=== PATIENT | male | born 1980 | race Caucasian/White ===

== ENCOUNTER 2019-01-12 00:51 | Inpatient (IN) | payer SELFPAY ==
[2019-01-12] MEDS ORDERED: cefTRIAXone\\ROCEPHIN 1 GM VIAL ONE (01:26)
[2019-01-12] MEDS ORDERED: cefTRIAXone\\ROCEPHIN 2 GM VIAL ONE (01:29)
[2019-01-12 01:38] LABS: #Lymphocytes 1.4 thou/uL (1.20-3.40); #Monocytes 1.3 thou/uL (0.11-0.59); #Neutrophils 10.1 thou/uL (1.40-6.50); %Basophils 0.1 % (0.0-1.0); %Eosinophils 0.1 % (0.0-10.0); %Lymphocytes 10.9 % (21.0-51.0); %Monocytes 10.4 % (0.0-10.0); %Neutrophils 78.4 % (42.0-75.0); Hemoglobin 13.5 g/dL (14.0-18.0); Mean Corpuscular HGB CONC 33.6 g/dL (32.0-36.0); Mean Corpuscular Hemoglobin 32.4 pg (27.0-31.0); Mean Corpuscular Volume 96.6 fL (78.0-98.0); Mean Platelet Volume 7.4 fL (7.4-10.4); Platelet Count 188 thou/uL (130-400); RBC Distribution Width 11.3 % (11.5-14.5); Red Blood Cell (RBC) Count 4.16 mill/uL (4.70-6.10); White Blood Cell (WBC) Count 12.8 thou/uL (4.8-10.8)
[2019-01-12 01:39] LABS: MONO NEGATIVE CONTROL ZONE White (Negative) (White); MONO POSITIVE CONTROL Pink Line (Positive) (PINK/RED); Mononucleosis NEGATIVE (NEGATIVE)
[2019-01-12 01:56] LABS: ALT (SGPT) 159 U/L (8-55); AST (SGOT) 100 U/L (5-34); Albumin 3.8 g/dL (3.5-5.0); Alkaline Phosphatase 113 U/L (40-150); Anion Gap 13 mmol/L (10-20); BUN (Urea Nitrogen) 17 mg/dL (8.9-20.6); Bilirubin, Total 0.4 mg/dL (0.2-1.2); Calc. Creatinine Clearance 0 mL/min (70-130); Calcium 9.3 mg/dL (7.8-10.44); Carbon Dioxide 26 mmol/L (22-29); Chloride 100 mmol/L (98-107); Estimated GFR-MDRD 83; Globulin 3.5 g/dL (2.4-3.5); Glucose 110 mg/dL (70-105); Potassium 3.5 mmol/L (3.5-5.1); Protein, Total 7.3 g/dL (6.0-8.3); Sodium 135 mmol/L (136-145)
--- NOTE | 2019-01-12 02:55 | PDOC.FPRHP ---
- History of Present Illness Chief Complaint: headache, fever History of Present Illness: 38 yo incarcerated male presents to ED for fever and headaches and neck pain. Started few days ago and associated with photophobia, phonophobia, unrelieved with tylenol and have been worsening. Has a hx of meningitis in 1998. No recent exposure to others with similar sxs. Also endorses night sweats that seems to also be associated with his fever, but no cough. Has a hx of IV drug use, most recently 1.5 mos ago. In ED was febrile and tachycardic, given 1L bolus and tylenol. Patient refused LP due to bad experience and was started on Vanc & rocephin. - Allergies/Adverse Reactions Allergies Allergy/AdvReac Type Severity Reaction Status Date / Time Iodinated Contrast- Oral and Allergy Verified 01/12/19 07:07 IV Dye shellfish derived Allergy Verified 01/12/19 07:07 - History PMHx: Meningitis, bipolar I disore,r anxiety, epilepsy PSHx: Denies FHx: Prostate CA, melanoma Social: former 1/2 pack smoker on & off for 7 years, occasional etOH, hx xanax & meth abuse, IV drug use - Review of Systems General: reports: fever/chills, weight/appetite/sleep changes, night sweats ENT: denies: nasal congestion, rhinorrhea Respiratory: denies: cough, congestion, shortness of breath Cardiovascular: denies: chest pain, palpitation Gastrointestinal: denies: nausea, diarrhea, constipation Genitourinary: denies: dysuria Skin: denies: rashes, lesions Musculoskeletal: reports: pain, stiffness (neck stifness) Neurological: denies: numbness, syncope - Vital signs BP: BP: 133/78, Pulse: 98, Resp: 17 (Non-Labored), O2 sat: 97 on Room Air, Time : 01/12/2019 03:00 - Physical Exam Constitutional: NAD, awake, alert and oriented HEENT: normocephalic and atraumatic, PERRLA, EOMI, no scleral icterus -HEENT: dry mucosal membranes photophobia with light Neck: trachea midline, other (restricted ROM w/ neck, limited by pain negative brudzinski & kernig) Chest: no lesions Heart: RRR, normal S1/S2, no murmurs/rubs/gallops Lungs: CTAB, no respiratory distress, good air movement Abdomen: soft, non-tender Musculoskeletal: normal structure, normal tone Neurological: no focal deficit Skin: no rash/lesions, good turgor, no jaundice Heme/Lymphatic: no petechia FMR H&P: Results - Labs Result Diagrams: 01/12/19 01:26 01/12/19 01:26 Lab results: WBC 12.8 thou/uL (4.8-10.8) H 01/12/19 01:26 Hgb 13.5 g/dL (14.0-18.0) L 01/12/19 01:26 Hct 40.2 % (42.0-52.0) L 01/12/19 01:26 MCV 96.6 fL (78.0-98.0) 01/12/19 01:26 Plt Count 188 thou/uL (130-400) 01/12/19 01:26 Neutrophils % 78.4 % (42.0-75.0) H 01/12/19 01:26 Sodium 135 mmol/L (136-145) L 01/12/19 01:26 Potassium 3.5 mmol/L (3.5-5.1) 01/12/19 01:26 Chloride 100 mmol/L (98-107) 01/12/19 01:26 Carbon Dioxide 26 mmol/L (22-29) 01/12/19 01:26 BUN 17 mg/dL (8.9-20.6) 01/12/19 01:26 Creatinine 1.00 mg/dL (0.7-1.3) 01/12/19 01:26 Glucose 110 mg/dL (70-105) H 01/12/19 01:26 Lactic Acid 2.4 mmol/L (0.5-2.2) H 01/12/19 01:26 Calcium 9.3 mg/dL (7.8-10.44) 01/12/19 01:26 Total Bilirubin 0.4 mg/dL (0.2-1.2) 01/12/19 01:26 AST 100 U/L (5-34) H 01/12/19 01:26 ALT 159 U/L (8-55) H 01/12/19 01:26 Alkaline Phosphatase 113 U/L (40-150) 01/12/19 01:26 Serum Total Protein 7.3 g/dL (6.0-8.3) 01/12/19 01:26 Albumin 3.8 g/dL (3.5-5.0) 01/12/19 01:26 - Radiology Interpretation CT scan - head Status: pending Additional comment: CT brain: pending FMR H&P: A/P - Problem List (1) Sepsis Current Visit: Yes Status: Acute Code(s): A41.9 - SEPSIS, UNSPECIFIED ORGANISM (2) Elevated lactic acid level Current Visit: Yes Status: Acute Code(s): R79.89 - OTHER SPECIFIED ABNORMAL FINDINGS OF BLOOD CHEMISTRY (3) Transaminitis Current Visit: Yes Status: Acute Code(s): R74.0 - NONSPEC ELEV OF LEVELS OF TRANSAMNS & LACTIC ACID DEHYDRGNSE (4) Normocytic anemia Current Visit: Yes Status: Acute Code(s): D64.9 - ANEMIA, UNSPECIFIED (5) History of meningitis Current Visit: Yes Status: Resolved Code(s): Z86.61 - PERSONAL HISTORY OF INFECTIONS OF THE CENTRAL NERVOUS SYSTEM (6) History of intravenous drug abuse Current Visit: Yes Status: Chronic Code(s): Z87.898 - PERSONAL HISTORY OF OTHER SPECIFIED CONDITIONS (7) Bipolar 1 disorder Current Visit: Yes Status: Chronic Code(s): F31.9 - BIPOLAR DISORDER, UNSPECIFIED (8) Anxiety Current Visit: Yes Status: Chronic Code(s): F41.9 - ANXIETY DISORDER, UNSPECIFIED (9) Epilepsy Current Visit: Yes Status: Chronic Code(s): G40.909 - EPILEPSY, UNSP, NOT INTRACTABLE, WITHOUT STATUS EPILEPTICUS - Plan #Sepsis 2/2 suspected meningitis -Headache, photophobia, nuchal rigidity with elevated WBC at 12 and febrile at 100.9 raises concern for meningits in light of prior hx. Patient declined LP in ED, started empirically on Vancomycin & Rocephin in ED, will continue this -Obtain procal, blood cx, urine cx to r/o other sources -CT brain read pending -S/P 1L bolus in ED, will complete to 30cc/kg bolus, start mIVF -Admit medical/inpatient #Elevated lactic acid 2/2 above -Continue fluids #Transaminitis -Hx of IV drug abuse, will obtain RPR, hepatitis panel, HIV, quant gold -Trend with CMP -Can consider RUQ US #History of IV drug/polysubtance abuse -Obtain TTE to assess for endocarditis #Bipolar I -Not on home meds #Anxiety -Not on home meds #Epilepsy -Not on home meds dvt ppx: lovenox code: full dispo: >2 midnight Will discuss w/ Dr. murray FMR H&P: Upper Level - Pertinent history 38 yo M with PMH of bipolar disorder, polysubstance abuse, and previous bacterial meningitis presenting with fever, KAPLAN and neck stiffness. Pt is currently under the care of [facility]. Pt adamantly refused having LP done while in ER due to previous negative experience. Pt also reports being a former IV drug user. - Pertinent findings VSS, tmax 100.9 - Plan Date/Time: 01/12/19 0254 I, Nelson Hernandez MD PGY3, have evaluated this patient and agree with findings/ plan as outlined by academic intern resident. Pertinent changes/additions are listed here. 1. Sepsis 2/2 suspected meningitis -Pt presents with KAPLAN, neck stiffness, fever, leukocytosis and tachycardia. Although pt refuses LP and definitive diagnosis, pt has clinical features of meninigitis with previous history predisposing him as well. Blood cultures obtained and pt started on Vancomycin and Ceftriaxone. -Continue with current abx regimen to cover for N. meningitidis and S. pneumoniae. -Obtain procalcitonin. -Obtain UDS. -With history of IV drug use, obtain TTE to evaluate for possible endocarditis. Vancomycin appropriate initial therapy. -Continue IVF. 2. Elevated lactic acid 2/2 above -IVF and trend. 3. Elevated LFTs -With history of polysubstance abuse and incarceration, obtain quant gold, HIV, RPR, and hepatitis panel. -Continue to trend and consider dedicated RUQ US. -UDS per above. 4. Hx polysubstance abuse -Per above. FULL code PPx: Lovenox for VTE, no GI indicated. disposition: Admit pt under inpatient status for anticipated length of stay greater than two midnights, pending clinical course. Addendum - Attending - Attending Attestation Date/Time: 01/12/19 3981 I personally evaluated the patient and discussed the management with Dr. Vargas/ David. H&P repeated by me. I agree with the History, Examination, Assessment and Plan documented above with any addition or exceptions noted below. 38 y/o incarcerated WM with PMH of bipolar d/o and hx of meningitis in 1998 presents with fever to 103 and neck pain/stiffness. Was seen in ER and discussion had about need for LP to rule out meningitis. Patient refused. Denies vision changes, cough, nasal congestion, abdominal pain, dysuria, rash. Labs and imaging reviewed. No murmurs. Lungs ctab. Neg brudenski and kernigs. No focal neuro deficits. No rashes. No midline back pain. Fever without a source- discussed that complete workup includes an LP and that we could do it under fluroscopy. He adamantely declines. Continue Vanc and Rocephin. No history of HSV and patient non-toxic appearing so hold on acyclovir for now. If patient worsens will add. WIll get viral panel as well as TTE to r/o endocarditis. Urine and blood cx pending.
[2019-01-12] MEDS ORDERED: Ondansetron ODT 4 MG TAB PO PRN (04:35)
[2019-01-12] MEDS ORDERED: Acetaminophen 325 MG TAB PO PRN (04:35)
[2019-01-12 05:25] LABS: Lactic Acid 1.1 mmol/L (0.5-2.2)
[2019-01-12 05:49] LABS: Syphilis Antibody Nonreactive (Nonreactive); Syphilis Antibody Index 0.04 S/CO (<1.00 Non-Reactive)
[2019-01-12 05:50] LABS: HBSAB Concentration 7.91 mIU/mL; HBSAg Index 0.39 S/CO (0-0.99); HIV (1/2) Antibody/Antigen Non-Reactive (NonReactive); Hep B Core Total Ab Non-Reactive (NonReactive); Hep B Core Total Index 0.11 S/CO (0-0.79); Hep B Surf AB Non-Reactive (NonReactive); Hep B Surf Ag Non-Reactive S/CO (NonReactive); Hep C IgG Ab Non-Reactive (NonReactive); Hep C Index 0.08 S/CO (0-0.79)
[2019-01-12] MEDS: Lactated Ringer's 1,000 ML IV SCH ×5 (05:54→21:41)
[2019-01-12 06:03] VITALS: BMI 24.2
[2019-01-12] MEDS: Vancomycin HCl 1.25 GM in Sodium Chloride 0.9% 250 ML 250 ML IVPB SCH ×3 (07:54→21:42)
[2019-01-12 08:32] LABS: Bilirubin Negative (Negative); Clarity CLEAR (Clear); Glucose, Urine (Dipstick) Negative (Negative); Leukocyte Negative (Negative); Nitrite Negative (Negative); Protein, Urine (Dipstick) 30 mg/dL (Neg-Trace); pH, Urine 7.5 (5.0-9.0)
[2019-01-12 08:37] LABS: Bacteria/HPF None Seen HPF (None Seen); Hyaline Casts/LPF 0-3 HYALINE CAST LPF (0-3 Hyaline); Pathc Cast-AUWi Flag 0.13 (0-2.49); Squamous Epithelial 0-3 HPF (0-3); WBC/HPF 0-3 HPF (0-3)
[2019-01-12 08:52] LABS: Medtox Reader # READER 4
[2019-01-12 08:53] LABS: Amphetamine Not Detected (NotDetected); Barbiturates Screen Not Detected (NotDetected); Benzodiazepine Screen Not Detected (NotDetected); Cocaine Metabolite Screen Not Detected (NotDetected); Medtox Control Line Valid? VALID (VALID); Methadone Not Detected (NotDetected); Methamphetamine Not Detected (NotDetected); Opiate Screen Not Detected (NotDetected); Oxycodone Screen Not Detected (NotDetected); Phencyclidine (PCP) Not Detected (NotDetected); THC/Cannabinoid Screen Not Detected (NotDetected); Tricyclic Screen Not Detected (NotDetected)
[2019-01-12] MEDS ORDERED: SODIUM CHLORIDE 0.9% IVPB SCH (09:00)
[2019-01-12] MEDS ORDERED: VANCOMYCIN HCL IVPB SCH (09:00)
[2019-01-12] MEDS: Enoxaparin Sodium 40 MG/0.4 ML SYRINGE SC SCH (09:01)
--- NOTE | 2019-01-12 09:06 | CT ---
PRELIMINARY REPORT/[facility]/EMERGENCY AFTER HOURS PROCEDURE: EXAM: CT Head Without Contrast EXAM DATE/TIME: 01/12/2019 1:28 AM CLINICAL HISTORY: 38 years old, male; Pain; Headache not specified; Patient HX: Er 9. Headache. PT reports generalized body aches and fever with tmax of 103 TECHNIQUE: Imaging protocol: Axial computed tomography images of the head/brain without contrast. COMPARISON: No relevant prior studies available. FINDINGS: Brain: No acute findings. No hemorrhage. No significant white matter disease. No edema. Ventricles: No acute findings. No ventriculomegaly. Bones/joints: No acute fracture. Sinuses: No acute findings. No significant air-fluid levels. Mastoid air cells: No acute findings. No mastoid effusion. Soft tissues: No acute findings. IMPRESSION: No acute intracranial abnormality. Thank you for allowing us to participate in the care of your patient. Dictated and Authenticated by: Pineda Santos MD 01/12/2019 2:00 AM Central Time ([place] & [place]) FINAL REPORT CT HEAD NONCONTRAST: DATE: 01/12/19 FINDINGS/IMPRESSION: I agree with the above provided preliminary interpretation from [facility]. No acute intracranial hemorrhage or mass effect. Incidental note of partially imaged nasal bone deformity, age-indeterminate. Correlate with physical exam.
[2019-01-12 09:15] LABS: Blood, Urine Small (Negative)
[2019-01-12 09:18] LABS: Urine Culture Reflex No No
[2019-01-12 12:02] LABS: Acetaminophen Less than 6.0 mcg/mL (10.0-30.0)
[2019-01-12] MEDS: cefTRIAXone\\ROCEPHIN 2 GM in Sodium Chloride 0.9% 100 ML IVPB SCH (13:03)
[2019-01-13] MEDS: cefTRIAXone\\ROCEPHIN 2 GM in Sodium Chloride 0.9% 100 ML IVPB SCH ×2 (01:49→13:21)
--- NOTE | 2019-01-13 05:27 | PDOC.FM ---
- Subjective Subjective: Pt denies KAPLAN, nuchal rigidity, fevers. No other complaints - Objective MAR Reviewed: Yes Vital Signs & Weight: Vital Signs (12 hours) Temp Pulse Resp BP Pulse Ox 01/13/19 04:54 98.8 F 72 18 131/77 97 01/13/19 00:00 98.9 F 81 18 138/74 96 01/12/19 19:58 98.1 F 76 18 118/72 99 Weight Weight 81.102 kg I&O: 01/11/19 01/12/19 01/13/19 06:59 06:59 06:59 Intake Total 3990 Balance 3990 Result Diagrams: 01/13/19 06:07 01/13/19 06:07 Phys Exam - Physical Examination Constitutional: NAD HEENT: PERRLA, moist MMs Neck: supple, full ROM Respiratory: no wheezing, clear to auscultation bilateral Cardiovascular: RRR, no significant murmur Musculoskeletal: no edema, edema present Neurological: non-focal, moves all 4 limbs Psychiatric: normal affect, A&O x 3 Dx/Plan (1) Sepsis Code(s): A41.9 - SEPSIS, UNSPECIFIED ORGANISM Status: Acute (2) Elevated lactic acid level Code(s): R79.89 - OTHER SPECIFIED ABNORMAL FINDINGS OF BLOOD CHEMISTRY Status : Acute (3) Transaminitis Code(s): R74.0 - NONSPEC ELEV OF LEVELS OF TRANSAMNS & LACTIC ACID DEHYDRGNSE Status: Acute (4) Normocytic anemia Code(s): D64.9 - ANEMIA, UNSPECIFIED Status: Acute (5) History of meningitis Code(s): Z86.61 - PERSONAL HISTORY OF INFECTIONS OF THE CENTRAL NERVOUS SYSTEM Status: Resolved (6) History of intravenous drug abuse Code(s): Z87.898 - PERSONAL HISTORY OF OTHER SPECIFIED CONDITIONS Status: Chronic (7) Bipolar 1 disorder Code(s): F31.9 - BIPOLAR DISORDER, UNSPECIFIED Status: Chronic (8) Anxiety Code(s): F41.9 - ANXIETY DISORDER, UNSPECIFIED Status: Chronic (9) Epilepsy Code(s): G40.909 - EPILEPSY, UNSP, NOT INTRACTABLE, WITHOUT STATUS EPILEPTICUS Status: Chronic - Plan Plan: #Sepsis 2/2 suspected meningitis -Patient afebrile overnight, last fever 01/12 @1332 -Continue vancomycin & rocephin to cover meningitis, inc dosing due to subtherapeutic trough -Still with left shift but WBC normal -Procal 0.32 -> pending AM procal -Blood Cx NGTD -If patient declines consider acyclovir with hx of HSV outbreak -Elieser #Transaminitis -Hx of IV drug abuse -RPR, HIV, Hep panel neg -Pending quant gold -Can consider RUQ US -Continue trending with CMP #History of IV drug/polysubtance abuse -TTE with mild mitral and tricuspid regurgitation, no mention of vegetations #Bipolar I -Not on home meds #Anxiety -Not on home meds #Epilepsy -Not on home meds dvt ppx: lovenox code: full dispo: >2 midnight Will discuss w/ Dr. murray
[2019-01-13] MEDS: Lactated Ringer's 1,000 ML IV SCH ×3 (06:22→21:20)
[2019-01-13 06:26] LABS: Lactic Acid 0.9 mmol/L (0.5-2.2)
[2019-01-13 06:30] LABS: ALT (SGPT) 157 U/L (8-55); AST (SGOT) 84 U/L (5-34); Albumin 3.2 g/dL (3.5-5.0); Alkaline Phosphatase 131 U/L (40-150); Anion Gap 11 mmol/L (10-20); BUN (Urea Nitrogen) 7 mg/dL (8.9-20.6); Bilirubin, Total 0.2 mg/dL (0.2-1.2); Calc. Creatinine Clearance 137 mL/min (70-130); Calcium 8.9 mg/dL (7.8-10.44); Carbon Dioxide 24 mmol/L (22-29); Chloride 107 mmol/L (98-107); Estimated GFR-MDRD Greater than 90; Glucose 102 mg/dL (70-105); Potassium 3.9 mmol/L (3.5-5.1); Protein, Total 6.2 g/dL (6.0-8.3); Sodium 138 mmol/L (136-145)
[2019-01-13 06:39] LABS: Band 16 % (5-11); Eosinophils 2 % (0-10); Hemoglobin 11.6 g/dL (14.0-18.0); Lymphocytes 21 % (21-51); MDiff Complete? YES; Mean Corpuscular HGB CONC 33.4 g/dL (32.0-36.0); Mean Corpuscular Hemoglobin 31.7 pg (27.0-31.0); Mean Corpuscular Volume 94.8 fL (78.0-98.0); Mean Platelet Volume 7.8 fL (7.4-10.4); Monocytes 8 % (0-10); Neutrophil 53 % (42-75); Platelet Count 106 thou/uL (130-400); Platelet Morphology Comment Appears Decreased; RBC Distribution Width 11.5 % (11.5-14.5); Red Blood Cell (RBC) Count 3.67 mill/uL (4.70-6.10); White Blood Cell (WBC) Count 8.9 thou/uL (4.8-10.8)
[2019-01-13] MEDS: Vancomycin HCl 1.25 GM in Sodium Chloride 0.9% 250 ML 250 ML IVPB SCH (06:45)
[2019-01-13] MEDS: Vancomycin HCl 1.5 GM in Sodium Chloride 0.9% 250 ML 300 ML IVPB SCH ×3 (07:00→21:20)
--- NOTE | 2019-01-13 07:47 | ULT ---
GALLBLADDER ULTRASOUND: INDICATIONS: Pain. FINDINGS: Low level echoes of the gallbladder are present. This may relate to sludge and/or small cholelithias is. There is gallbladder wall thickening, approximating 5 mm in thickness. No ascites. Varela sign is reported as negative by the senior software systems engineer. The common duct is normal in caliber. No focal hepatic lesion. IMPRESSION: 1. Wall thickening and low level echoes of the gallbladder. This may reflect cholecystitis in the c orrect clinical context. Recommend clinical correlation in this regard. 2. No focal hepatic lesion is demonstrated. There is a slight degree of increased echogenicity of t he hepatic parenchyma, which can be seen in the setting of steatosis or hepatocellular disease. This can be further discerned with liver function enzymes. POS: ASHANTI
[2019-01-13] MEDS: Enoxaparin Sodium 40 MG/0.4 ML SYRINGE SC SCH (08:15)
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
[2019-01-14] MEDS: cefTRIAXone\\ROCEPHIN 2 GM in Sodium Chloride 0.9% 100 ML IVPB SCH ×2 (01:37→13:31)
[2019-01-14 05:56] LABS: Vancomycin, Trough 22.3 ug/mL
--- NOTE | 2019-01-14 06:19 | PDOC.FM ---
- Subjective Subjective: NAEO. Patient denies KAPLAN, neck stiffness, fevers. Denies postprandial abd pain. - Objective MAR Reviewed: Yes Vital Signs & Weight: Vital Signs (12 hours) Temp Pulse Resp BP Pulse Ox 01/14/19 04:00 98.4 F 01/14/19 00:00 98.4 F 01/13/19 20:14 98.3 F 67 16 110/66 97 Weight Weight 81.102 kg I&O: 01/12/19 01/13/19 01/14/19 06:59 06:59 06:59 Intake Total 6485 2425 Balance 6485 2425 Result Diagrams: 01/14/19 06:31 01/14/19 06:31 Phys Exam - Physical Examination Constitutional: NAD HEENT: PERRLA, moist MMs, sclera anicteric Neck: supple, full ROM Respiratory: no wheezing, clear to auscultation bilateral Cardiovascular: RRR, no significant murmur Gastrointestinal: soft, non-tender Neurological: non-focal, moves all 4 limbs Dx/Plan (1) Sepsis Code(s): A41.9 - SEPSIS, UNSPECIFIED ORGANISM Status: Acute (2) Elevated lactic acid level Code(s): R79.89 - OTHER SPECIFIED ABNORMAL FINDINGS OF BLOOD CHEMISTRY Status : Acute (3) Transaminitis Code(s): R74.0 - NONSPEC ELEV OF LEVELS OF TRANSAMNS & LACTIC ACID DEHYDRGNSE Status: Acute (4) Normocytic anemia Code(s): D64.9 - ANEMIA, UNSPECIFIED Status: Acute (5) History of meningitis Code(s): Z86.61 - PERSONAL HISTORY OF INFECTIONS OF THE CENTRAL NERVOUS SYSTEM Status: Resolved (6) History of intravenous drug abuse Code(s): Z87.898 - PERSONAL HISTORY OF OTHER SPECIFIED CONDITIONS Status: Chronic (7) Bipolar 1 disorder Code(s): F31.9 - BIPOLAR DISORDER, UNSPECIFIED Status: Chronic (8) Anxiety Code(s): F41.9 - ANXIETY DISORDER, UNSPECIFIED Status: Chronic (9) Epilepsy Code(s): G40.909 - EPILEPSY, UNSP, NOT INTRACTABLE, WITHOUT STATUS EPILEPTICUS Status: Chronic - Plan Plan: #Sepsis 2/2 suspected meningitis vs. transient bacteremia -Last fever 01/12 @1332 -Continue vancomycin & rocephin to cover presumed meningitis -Blood cx NGTD -Procal 0.32 -> .2 -> .1 -If patient declines consider acyclovir with hx of HSV outbreak -Dr. Encinas on board #Transaminitis -Hx of IV drug abuse -RPR, HIV, Hep panel neg -Pending quant gold -RUQ US: GB wall thickening, hepatic steatosis vs. hep. cellular dz -Continue trending with CMP #History of IV drug/polysubtance abuse -TTE with mild mitral and tricuspid regurgitation, no mention of vegetations #Bipolar I -Not on home meds -f/u outpt #Anxiety -Not on home meds -f/u outpt #Epilepsy -Not on home meds -f/u outpt dvt ppx: lovenox code: full Will discuss w/ Dr. Almanzar Dispo: 1) Sepsis 2/2 suspected meningitis vs. transient bactermia vs. GB process per Dr. Encinas. Pt has been stable, afebrile with procal downtrending. Continue vancomycin & rocephin until blood cultures result.
[2019-01-14] MEDS: Lactated Ringer's 1,000 ML IV SCH (06:28)
[2019-01-14] MEDS: Vancomycin HCl 1.5 GM in Sodium Chloride 0.9% 250 ML 300 ML IVPB SCH (06:38)
[2019-01-14 06:54] LABS: #Basophils 0.1 thou/uL (0.0-0.2); #Eosinphils 0.3 thou/uL (0.0-0.7); #Monocytes 0.9 thou/uL (0.11-0.59); #Neutrophils 2.6 thou/uL (1.40-6.50); %Basophils 1.2 % (0.0-1.0); %Eosinophils 5.4 % (0.0-10.0); %Lymphocytes 34.4 % (21.0-51.0); %Monocytes 14.7 % (0.0-10.0); %Neutrophils 44.4 % (42.0-75.0); Hemoglobin 11.5 g/dL (14.0-18.0); Mean Corpuscular HGB CONC 33.8 g/dL (32.0-36.0); Mean Corpuscular Hemoglobin 32.5 pg (27.0-31.0); Mean Corpuscular Volume 96.2 fL (78.0-98.0); Mean Platelet Volume 7.9 fL (7.4-10.4); Platelet Count 115 thou/uL (130-400); RBC Distribution Width 11.4 % (11.5-14.5); Red Blood Cell (RBC) Count 3.54 mill/uL (4.70-6.10); White Blood Cell (WBC) Count 5.9 thou/uL (4.8-10.8)
[2019-01-14 07:07] LABS: ALT (SGPT) 136 U/L (8-55); AST (SGOT) 57 U/L (5-34); Albumin 3.3 g/dL (3.5-5.0); Alkaline Phosphatase 146 U/L (40-150); Anion Gap 12 mmol/L (10-20); BUN (Urea Nitrogen) 8 mg/dL (8.9-20.6); Bilirubin, Total 0.2 mg/dL (0.2-1.2); Calc. Creatinine Clearance 140 mL/min (70-130); Calcium 9.3 mg/dL (7.8-10.44); Carbon Dioxide 28 mmol/L (22-29); Chloride 104 mmol/L (98-107); Estimated GFR-MDRD Greater than 90; Globulin 2.9 g/dL (2.4-3.5); Glucose 87 mg/dL (70-105); Potassium 3.8 mmol/L (3.5-5.1); Protein, Total 6.2 g/dL (6.0-8.3); Sodium 140 mmol/L (136-145)
[2019-01-14] MEDS: Enoxaparin Sodium 40 MG/0.4 ML SYRINGE SC SCH (10:15)
--- NOTE | 2019-01-14 12:19 | PRG ---
DATE OF SERVICE: 01/14/2019 SUBJECTIVE: Mr. Messer was seen by Dr. Encinas. We appreciate his input. He does not feel that Mr. Messer has bacterial meningitis. He would treat the patient with IV antibiotics until cultures are returned. If they were negative, antibiotics will be discontinued and the patient will be discharged. In the event, Mr. Messer this morning is awake, alert, appears happy and anxious to see his children. No new complaints. Job ID: [id number]
[2019-01-14] MEDS: Vancomycin HCl 1.25 GM in Sodium Chloride 0.9% 250 ML 250 ML IVPB SCH ×2 (14:57→21:53)
[2019-01-15] MEDS: cefTRIAXone\\ROCEPHIN 2 GM in Sodium Chloride 0.9% 100 ML IVPB SCH (02:13)
[2019-01-15] MEDS: Vancomycin HCl 1.25 GM in Sodium Chloride 0.9% 250 ML 250 ML IVPB SCH (05:36)
[2019-01-15 06:47] LABS: #Basophils 0.1 thou/uL (0.0-0.2); #Eosinphils 0.2 thou/uL (0.0-0.7); #Lymphocytes 2.2 thou/uL (1.20-3.40); #Monocytes 0.9 thou/uL (0.11-0.59); #Neutrophils 3.7 thou/uL (1.40-6.50); %Basophils 1.2 % (0.0-1.0); %Eosinophils 3.2 % (0.0-10.0); %Lymphocytes 31.5 % (21.0-51.0); %Monocytes 12.1 % (0.0-10.0); Hemoglobin 12.3 g/dL (14.0-18.0); Mean Corpuscular HGB CONC 32.8 g/dL (32.0-36.0); Mean Corpuscular Hemoglobin 31.5 pg (27.0-31.0); Mean Platelet Volume 7.7 fL (7.4-10.4); Platelet Count 168 thou/uL (130-400); RBC Distribution Width 11.5 % (11.5-14.5); White Blood Cell (WBC) Count 7.1 thou/uL (4.8-10.8)
--- NOTE | 2019-01-15 06:57 | PDOC.FM ---
- Subjective Subjective: Denies dull headaches, improved. No photophobia, nausea, no nuchal rigidity. no rash or other complaints. States he is ready to leave - Objective MAR Reviewed: Yes Vital Signs & Weight: Vital Signs (12 hours) Temp Pulse Resp BP Pulse Ox 01/15/19 05:29 97.9 F 66 18 117/69 97 01/15/19 00:16 98.6 F 76 18 136/73 97 01/14/19 19:43 98.0 F 81 18 147/78 H 100 Weight Weight 81.102 kg I&O: 01/13/19 01/14/19 01/15/19 06:59 06:59 06:59 Intake Total 6485 2425 1080 Balance 6485 2425 1080 Result Diagrams: 01/15/19 05:53 01/15/19 05:53 Phys Exam - Physical Examination Constitutional: NAD HEENT: PERRLA, moist MMs, sclera anicteric Neck: supple, full ROM Respiratory: clear to auscultation bilateral Cardiovascular: RRR, no significant murmur Gastrointestinal: soft, non-tender Neurological: non-focal, moves all 4 limbs Psychiatric: normal affect, A&O x 3 Dx/Plan (1) Sepsis Code(s): A41.9 - SEPSIS, UNSPECIFIED ORGANISM Status: Acute (2) Elevated lactic acid level Code(s): R79.89 - OTHER SPECIFIED ABNORMAL FINDINGS OF BLOOD CHEMISTRY Status : Acute (3) Transaminitis Code(s): R74.0 - NONSPEC ELEV OF LEVELS OF TRANSAMNS & LACTIC ACID DEHYDRGNSE Status: Acute (4) Normocytic anemia Code(s): D64.9 - ANEMIA, UNSPECIFIED Status: Acute (5) History of meningitis Code(s): Z86.61 - PERSONAL HISTORY OF INFECTIONS OF THE CENTRAL NERVOUS SYSTEM Status: Resolved (6) History of intravenous drug abuse Code(s): Z87.898 - PERSONAL HISTORY OF OTHER SPECIFIED CONDITIONS Status: Chronic (7) Bipolar 1 disorder Code(s): F31.9 - BIPOLAR DISORDER, UNSPECIFIED Status: Chronic (8) Anxiety Code(s): F41.9 - ANXIETY DISORDER, UNSPECIFIED Status: Chronic (9) Epilepsy Code(s): G40.909 - EPILEPSY, UNSP, NOT INTRACTABLE, WITHOUT STATUS EPILEPTICUS Status: Chronic - Plan Plan: #Sepsis 2/2 suspected meningitis vs. transient bacteremia -Last fever 01/12 @1332 -Continue vancomycin & rocephin to cover presumed meningitis -Blood cx NGTD thus far -Procal 0.32 -> .2 -> .1 -> .06 -If patient declines consider acyclovir with hx of HSV outbreak -Dr. Encinas on board #Transaminitis -Hx of IV drug abuse -RPR, HIV, Hep panel neg -Pending quant gold -RUQ US: GB wall thickening, hepatic steatosis vs. hep. cellular dz -Continue trending with CMP #History of IV drug/polysubtance abuse -TTE with mild mitral and tricuspid regurgitation, no mention of vegetations #Bipolar I -Not on home meds -f/u outpt #Anxiety -Not on home meds -f/u outpt #Epilepsy -Not on home meds -f/u outpt dvt ppx: lovenox code: full Will discuss w/ Dr. Almanzar Dispo: 1) Sepsis 2/2 suspected meningitis vs. transient bactermia vs. GB process per Dr. Encinas. Pt has been stable, afebrile with procal downtrending. Continue vancomycin & rocephin until blood cultures finalize negative. Possible d/c back to alf today
[2019-01-15 06:59] LABS: ALT (SGPT) 108 U/L (8-55); AST (SGOT) 35 U/L (5-34); Albumin 3.4 g/dL (3.5-5.0); Alkaline Phosphatase 150 U/L (40-150); Anion Gap 12 mmol/L (10-20); BUN (Urea Nitrogen) 8 mg/dL (8.9-20.6); Bilirubin, Total 0.2 mg/dL (0.2-1.2); Calc. Creatinine Clearance 120 mL/min (70-130); Carbon Dioxide 29 mmol/L (22-29); Chloride 104 mmol/L (98-107); Estimated GFR-MDRD 88; Glucose 93 mg/dL (70-105); Potassium 3.7 mmol/L (3.5-5.1); Protein, Total 6.4 g/dL (6.0-8.3); Sodium 141 mmol/L (136-145)
[2019-01-15 07:38] VITALS: BP 117/73; TEMP 98.2
[2019-01-15] MEDS: Enoxaparin Sodium 40 MG/0.4 ML SYRINGE SC SCH (08:58)
[2019-01-15 12:20] LABS: ALT (SGPT) 108 U/L (8-55); AST (SGOT) 32 U/L (5-34); Albumin 3.4 g/dL (3.5-5.0); Alkaline Phosphatase 149 U/L (40-150); Bilirubin, Direct 0.1 mg/dL (0.1-0.3); Bilirubin, Total 0.2 mg/dL (0.2-1.2); Protein, Total 6.4 g/dL (6.0-8.3)
--- NOTE | 2019-01-15 14:25 | PRG ---
DATE OF SERVICE: 01/15/2019 Mr. Messer continues to look and feel well. His cultures were all negative. He is afebrile. Blood pressure 117/73. His last white count was 7100. He will be discharged today. Job ID: [id number]
--- NOTE | 2019-01-16 02:53 | DIS ---
DATE OF ADMISSION: 01/12/2019 DATE OF DISCHARGE: 01/15/2019 RESIDENT: Estefanía Vargas MD. ADMITTING ATTENDING: Dione Reyes MD. DISCHARGE ATTENDING: Manjeet Briggs MD. CONSULTS: Dr. Encinas, Infectious Disease. PROCEDURES: None. PRIMARY DIAGNOSES: 1. Fever without a source. However, the suspicion of viral infection versus transient bacteremia versus gallbladder process versus viral meningitis. 2. Elevated LFTs. SECONDARY DIAGNOSES: 1. History of meningitis. 2. Bipolar disorder. 3. Polysubstance abuse. 4. Left clavicular fracture. DISCHARGE MEDICATIONS: Hydroxyzine 50 mg p.o. q.p.m. DISCONTINUED MEDICATIONS: None. HISTORY OF PRESENT ILLNESS AND HOSPITAL COURSE: Mr. Mark Messer is a 38-year-old inmate, who came to us for several days of fever as high as 103 Fahrenheit, headaches, neck stiffness, and overall not feeling well. The patient has had a history of meningitis, and due to concern for this, he was worked up as this in the ED with a brain CT that was negative. The patient did have a white count and was febrile and tachycardic. He was adamantly refused a lumbar puncture after several attempts to discuss with him the need to do so. Thus, due to clinical suspicion for meningitis based on the clinical exam and his history, he was empirically started on vancomycin and Rocephin. Over the course of a few days, the patient's white count resolved and overall the patient improved with no more continued headaches or photophobia or neck stiffness. Of note, he does have a history of IV drug use, and so there was a thought that transient bacteremia due to endocarditis could be source as well. TTE showed tricuspid and mitral valve regurgitation, but no signs of vegetation. In addition, blood cultures resulted negative at 48 hours. Infectious Disease, Dr. Encinas, was consulted, who did not believe that the patient did not have meningitis since he did not present altered to the ED and was not toxic appearing. He recommended to continue antibiotics until cultures resulted as negative and discharged without p.o. antibiotics. In addition, the patient's lab showed elevated LFTs in the 100s. His HIV, RPR, and syphilis labs all were negative. His LFTs remained mildly elevated, but did trend down close to normal, and it was thought this was likely due to the acute stress. Right upper quadrant ultrasound was negative aside from some gallbladder wall thickening. However, on exam, the patient had no abdominal pain and denied any postprandial pain in the past. Upon discharge, the patient was adamant that he have a referral to go to a specialist to evaluate his left clavicular fracture. Referral was placed in discharge packet. The patient was discharged in a stable condition. DISPOSITION: Stable. DISCHARGE INSTRUCTIONS: 1. Location: [facility]. 2. Diet: Heart healthy. 3. Activity: As tolerated. 4. Followup: Please follow up with PCP in the longterm system. Please also follow up with Dr. Escobar for Sports Med for further evaluation of left clavicular fracture. Job ID: [id number]
== END 2019-01-15 12:54 | DRG 872 ==
LOC: ERS 00:51 → ONC 04:22 → T4-B 05:48
PROVIDERS: ADMIT Family Medicine; ATTEND Family Medicine
DX: A41.9 Sepsis, unspecified organism (principal); F31.9 Bipolar disorder, unspecified; F41.9 Anxiety disorder, unspecified; R74.0 Nonspecific elevation of levels of transaminase and lactic acid dehydrogenase [LDH]; D64.9 Anemia, unspecified; G40.909 Epilepsy, unspecified, not intractable, without status epilepticus; Z91.041 Radiographic dye allergy status; Z91.013 Allergy to seafood; Z87.891 Personal history of nicotine dependence; Z86.61 Personal history of infections of the central nervous system; Z87.898 Personal history of other specified conditions
CPT/HCPCS: 36415; 36416; 70450; 76705; 80053; 80202; 80306; 80307; 81001; 83605; 84145; 85007; 85025; 85027; 86308; 86480; 86704; 86706; 86780; 86803; 87040; 87081; 87340; 87389; 87430; 87633; 87804; 93306; J0696; J1650; J3370; J3490; J7050

== ENCOUNTER 2020-01-08 13:17 | Emergency (ER) | payer OTHER, SELFPAY ==
[~2020-01-08 13:17] MED LIST: Iopamidol 370 76% 100 ML VIAL ONE
[2020-01-08] MEDS ORDERED: Ketorolac Tromethamine 30 MG/ML VIAL ONE (14:09)
[2020-01-08 14:36] LABS: #Lymphocytes 1.6 thou/uL (1.20-3.40); #Monocytes 1.6 thou/uL (0.11-0.59); #Neutrophils 9.7 thou/uL (1.40-6.50); %Basophils 0.1 % (0.0-1.0); %Eosinophils 0.2 % (0.0-10.0); %Lymphocytes 12.6 % (21.0-51.0); %Monocytes 12.2 % (0.0-10.0); %Neutrophils 74.8 % (42.0-75.0); Hemoglobin 14.7 g/dL (14.0-18.0); Mean Corpuscular HGB CONC 33.9 g/dL (32.0-36.0); Mean Corpuscular Hemoglobin 32.8 pg (27.0-31.0); Mean Corpuscular Volume 96.8 fL (78.0-98.0); Mean Platelet Volume 7.5 fL (7.4-10.4); Platelet Count 287 thou/uL (130-400); RBC Distribution Width 11.4 % (11.5-14.5); Red Blood Cell (RBC) Count 4.49 mill/uL (4.70-6.10); White Blood Cell (WBC) Count 12.9 thou/uL (4.8-10.8)
[2020-01-08] MEDS ORDERED: methylPREDNISolone Sod Succ/PF 125 MG/2 ML VIAL ONE (14:38)
[2020-01-08] MEDS ORDERED: Famotidine/PF 20 mg/2ml Vial ONE (14:38)
[2020-01-08] MEDS ORDERED: diphenhydrAMINE 50 MG/ML VIAL ONE (14:38)
[2020-01-08 15:00] LABS: ALT (SGPT) 85 U/L (8-55); AST (SGOT) 33 U/L (5-34); Albumin 4.1 g/dL (3.5-5.0); Alkaline Phosphatase 88 U/L (40-110); Anion Gap 10 mmol/L (10-20); BUN (Urea Nitrogen) 10 mg/dL (8.9-20.6); Bilirubin, Total 0.6 mg/dL (0.2-1.2); Calc. Creatinine Clearance 0 mL/min (70-130); Calcium 9.6 mg/dL (7.8-10.44); Carbon Dioxide 29 mmol/L (22-29); Chloride 104 mmol/L (98-107); Estimated GFR-MDRD Greater than 90; Globulin 3.4 g/dL (2.4-3.5); Glucose 83 mg/dL (70-105); Potassium 4.3 mmol/L (3.5-5.1); Protein, Total 7.5 g/dL (6.0-8.3); Sodium 139 mmol/L (136-145)
--- NOTE | 2020-01-08 16:27 | CT ---
CT maxillofacial with contrast: DATE: 01/08/2020 HISTORY: 39-year-old male with left jaw pain and swelling with fever. FINDINGS: There is severe edema in the superficial and deep spaces of the left face and neck, including subcuta neous fat and deeper in the left premaxillary space; left buccal space; left chemist helper space; left parapharyngeal space, with encroachment upon the left submandibular space. The platysma muscle on the left side is thickened and infiltrated. Soft tissue edema crosses the midline to involve the right side of the superficial soft tissues adjacent to the anterior mandible. There is a large cavity involving the crown and probably the pulp of the left second mandibular molar tooth. There is also a larger cavity involving crown and pulp of the contralateral right third maxillary molar tooth. There is no periapical osseous lucency, and no focal osseous cortical defect. There is a questionable thin, flat fluid collection with rim enhancement in the left buccal space abutting the lateral periosteum of the left mandibular body and angle, measuring approximately 2 cm A P x 1 cm craniocaudal x 0.4 cm transverse. It contains a small amount of gas. This may or may not represent an abscess. The is no periosteal elevation or kwaku bone destruction. Bilateral palatine tonsils, adenoids, and lingual tonsil are hyperplastic. Perhaps minimal edema in t he larynx. Numerous shotty cervical lymph nodes bilaterally, especially left level 1B lymph nodes. IMPRESSION: 1. Cellulitis involving left face and jaw, with extensive edema throughout left superficial and deep spaces. This is probably an odontogenic infection. 2. Caries involving a left lower molar and a right upper molar. However, no periapical lucency or cor tical osseous defect is identified. 3. However, there is a very thin, flat, possible abscess in the left buccal space broadly abutting th e lateral cortex of the left mandible.
[2020-01-08] MEDS ORDERED: Clindamycin/D5W 900 mg/50 ml Premix Bag ONE (16:51)
[2020-01-08 17:42] LABS: Bacteria/HPF None Seen HPF (None Seen); Bilirubin Negative (Negative); Blood, Urine Negative (Negative); Clarity Clear (Clear); Glucose, Urine (Dipstick) Normal (Negative); Leukocyte Negative Leu/uL (Negative); Nitrite Negative (Negative); Protein, Urine (Dipstick) Negative (Neg-Trace); RBC/HPF 0-3 HPF (0-3); Squamous Epithelial None Seen HPF (0-3); Urobilinogen Normal mg/dL (Less than 2); WBC/HPF 0-3 HPF (0-3)
[2020-01-08 17:43] LABS: Urine Culture Reflex No No
[2020-01-08] MEDS ORDERED: Dexamethasone 10 MG/ML VIAL ONE (19:07)
== END 2020-01-08 19:23 | disposition home or self-care (01) ==
LOC: ERS 13:17 → EEVIPCON 13:17 → ERS 19:23
DX: K04.7 Periapical abscess without sinus (principal); J45.909 Unspecified asthma, uncomplicated; F41.9 Anxiety disorder, unspecified; F31.9 Bipolar disorder, unspecified; Z87.891 Personal history of nicotine dependence; Z79.899 Other long term (current) drug therapy
CPT/HCPCS: 36415; 70487; 80053; 81001; 83605; 85025; 87040; 87086; 96361; 96365; 96375; J1100; J1200; J1885; J2930; J3490; Q9967; S0028